=== PATIENT | female | born 1965 | race Caucasian/White ===

== ENCOUNTER 2024-01-02 10:31 | Emergency (ER) | payer OTHER, SELFPAY ==
[2024-01-02 10:52] VITALS: BP 159/106
--- NOTE | 2024-01-02 11:11 | EDRN ---
Pt states her symptoms started w/ pain on top of R shoulder last week. Pt states pain has been shooting up to mid base of skull. Pain is described as a 9/10. Pt has taken excedrin migraine, advil, tylenol and aleve, meloxicam w/ no change. Pain is
constant but increases to knife like when turns her head to the right.
[2024-01-02 11:14] VITALS: BMI 22.4
[2024-01-02 11:16] VITALS: BP 136/101
--- NOTE | 2024-01-02 11:19 | EDRN ---
Rebecca Castro PA in room w/ pt at this time.
[2024-01-02] MEDS: LIDOCAINE 4% PATCH 1 PATCH TOPICAL (11:39)
[2024-01-02] MEDS: VALIUM 5 MG PO (11:39)
--- NOTE | 2024-01-02 11:42 | ED.GENMED ---
History of Present Illness
General
Chief Complaint: Headache
Source: patient
Time Seen by Provider: 01/02/24 11:15
History of Present Illness
History of Present Illness:
58-year-old female with no significant past medical history presenting to the emergency department for evaluation of a right posterior head/neck pain that has been ongoing for 1 week described to be gradually worsening, constant, initially felt more
in the right trapezius area but now located along the posterior scalp and into the right lateral neck. Patient has been taking gomqth-fzm-prdte Motrin/ibuprofen and Tylenol but without any relief. She got a massage late last week which did not
help at all and also went to her chiropractor this morning which also did not provide her with any relief. At 9 AM this morning patient took 3 Tylenol and 2 Advil and states this did not help her. She denies any other symptoms other than the pain
including visual disturbances, focal weakness or numbness, fevers or infectious symptoms, traumatic injuries or anything that may have precipitated the pain. No history of similar. No other concerns presently
Past History
Past History
ED Past Medical History: None
ED Past Surgical History:
Social History
Tobacco: Non-smoker
Alcohol: Occasional
Drug: None
Personal:
Living: with family
Employment: Employed
Review of Systems
Review of Systems
All Other Systems: ROS reviewed and negative except as documented in HPI and ROS
Phy Exam
Physical Exam
Physical Exam:
GENERAL: Alert , appears uncomfortable
HEAD: NCAT
EYE: pupils equal and reactive, 3mm bilateral, EOMI
NECK: Supple, no significant adenopathy. FROM, no meningismus, mildly reproducible ttp right base of skull. no overlying rashes
ENT: o/p clr, mmm. TM clear bilateral
NEUROLOGICAL: Alert and oriented, no focal neuro deficits, MEDLEY x4, ambulates with steady gait
SKIN: Warm and dry, skin intact.
MUSCULOSKELETAL: well perfused.
PSYCH: Normal and appropriate interaction.
Scores
Heart Failure Risk
Heart Failure Risk Score: Not Applicable
Heart Score for Chest Pain Patients
STEMI patient?: Not applicable
Withdrawal Assessment of Alcohol
Withdrawal Assessment Completed?: Not applicable
Course
Orders/Labs/Results
Orders:
Orders
01/02/24 11:31
Dexamethasone Sod Phosphate [Decadron] 10 mg IV NOW STA
Diazepam [Valium] 5 mg PO NOW STA
Lidocaine [Lidocaine 4% Patch] 1 patch TOPICAL NOW STA
Apply Lidocaine patch(s) to:: right posterior neck/trap
01/02/24 11:39
CT Head & Neck Angio W/wo IV Urgent
Comment:
Reason For Exam: right sided posterior head/neck pain, HTN
01/02/24 11:46
Basic Metabolic Panel Urgent
Complete Blood Count/With Diff Urgent
Abnormal Lab Results
01/02/24
11:46
Glucose 106 H mg/dl
(70-99)
Calcium 10.3 H mg/dl
(8.4-10.2)
01/02/24 11:46
01/02/24 11:46
Vital Signs
Initial and Last Documented VS:
Initial Vital Signs
Temp Pulse Resp BP Pulse Ox
98.1 F 79 18 159/106 99
01/02/24 10:52 01/02/24 10:52 01/02/24 10:52 01/02/24 10:52 01/02/24 10:52
Last Documented Vital Signs
Temp Pulse Resp BP Pulse Ox
98.1 F 73 14 143/101 96
01/02/24 10:52 01/02/24 13:00 01/02/24 13:00 01/02/24 13:00 01/02/24 13:00
MDM/Problems Addressed
Differential Diagnosis Includes:
tension headache, migraine headache, occipital neuralgia, muscle spasm, vascular/dissection, space occupying mass
MDM/Problems Addressed:
58-year-old female presenting to the emergency department for atraumatic right sided posterior head/neck discomfort ongoing for 1 week. No relief with gtgi-msb-ugygglz medications, massage and chiropractic appointment. Appears uncomfortable on
exam here. In triage patient's elevated blood pressure noted, systolic was slightly improved but diastolic remained elevated during my exam. Will check labs and treat with muscle relaxer, topical agent and Decadron. Will obtain CT of the head as
well as CT angio of the head and neck to rule out any vascular pathology. Reassessment following
*Radiology
Radiology exam reviewed: radiology read reviewed
*Pulse Oximetry
Patient hypoxic: no
*Critical Care Note
Total Time (30-74mins, 75-104mins- exclusive of procedures): Not Applicable
Patient Management
Escalation/DeEscalation of care consider admission/obs:
Patient's CTA of the head and neck and plain CT of the head are negative for any acute pathologies. Patient noting she still has discomfort along the right side of the neck. I suspect a muscular etiology is most likely diagnosis. Will send
patient home with a Medrol Dosepak and continued muscle relaxation with Valium. She has a follow-up appointment scheduled with primary care provider tomorrow morning. Aware of return precautions to the ER but otherwise stable for discharge home.
ED Attending Note
-
Portions of this chart may have been created with voice recognition software.� Occasional wrong word or��sound alike� substitutions may have occurred due to the inherent limitations of voice recognition software.
Discharge Plan
Departure
Patient Disposition: Home (Routine Discharge)
Date of Disposition: 01/02/24
Time of Disposition: 14:09
Patient with high blood pressure during this ER visit?: Yes
Discharge Problem:
Cervicalgia
Instructions: Neck pain
Prescriptions:
New
methylprednisolone [Medrol (Bull)] 4 mg tablets,dose pack
4 mg PO DIRECTED Qty: 21 0RF
diazepam [Valium] 5 mg tablet
5 mg PO BID PRN (Reason: muscle spasm) Qty: 6 0RF
No Action
aspirin 325 MG tablet
325 mg PO BIDPRN PRN (Reason: headache)
ascorbic acid (vitamin C) [Vitamin C] 500 MG tablet
1,000 mg PO DAILY
ibfhtad-aqnhnmxyrukcb-rcswrzmi 1 TABLET tablet
1 tab PO BIDPRN PRN (Reason: headaches)
echinacea 125 MG capsule
125 mg PO DAILY
multivitamin with folic acid [Tab-A-Igor] 1 TABLET tablet
1 tab PO DAILY
omeprazole 20 MG capsule,delayed release(DR/EC)
20 mg PO DAILYPRN PRN (Reason: indigestion)
Referrals:
Elier Feliz, DO [Family Provider] -
Interventions
Interventions:
*Risk Screen - Suicide Last Done: 01/02/24 10:52
*General Assessment Last Done: 01/02/24 10:52
*Neglect/Abuse Screening Last Done: 01/02/24 10:52
ED- Fall Risk Assessment Last Done: 01/02/24 11:15
*ED COVID-19 Vaccine History Last Done: 01/02/24 11:14
ED- Neurological Assessment Last Done: 01/02/24 11:18
Discharge Date and Time
Print Language: SWEDISH
[2024-01-02] MEDS: DECADRON 10 MG IV (11:45)
[2024-01-02 11:59] LABS: % Basophils 0.8 % (0-2); % Eosinophils 1.4 % (0-6); % Immature Granulocytes 0.2 % (0-0.5); % Lymphocytes 22.8 % (20.5-51.1); % Monocytes 5.6 % (1.7-9.3); % Neutrophils 69.2 % (42.2-75.2); Absolute Basophils 0.1 10^3/uL (0-0.2); Absolute Eosinophils 0.1 10^3/uL (0-0.7); Absolute Lymphocytes 1.4 10^3/uL (1.2-3.4); Absolute Monocytes 0.4 10^3/uL (0.1-0.6); Absolute Neutrophils 4.3 10^3/uL (1.4-6.5); Hematocrit 44.7 % (37.0-47.0); Mean Corp Hgb Conc. 33.6 g/dL (33.0-37.0); Mean Corpuscular Hgb 28.5 pg (27.0-31.0); Mean Platelet Volume 9.7 fL (7.4-10.4); Nucleated Red Blood Cells % 0 %; Platelet Count 296 10^3/uL (130-400); Red Blood Cell Count 5.26 10^6/uL (4.20-5.40); White Blood Cell Count 6.2 10^3/uL (4.8-10.8)
[2024-01-02 12:00] VITALS: BP 146/99
[2024-01-02 12:21] LABS: Blood Urea Nitrogen 17 mg/dl (7-17); Calcium 10.3 mg/dl (8.4-10.2); Carbon Dioxide 29 mmol/L (22-30); Chloride 105 mmol/L (98-107); Estimated Creatinine Clearance 56 ml/min; Glucose 106 mg/dl (70-99); Potassium 4.4 mmol/L (3.5-5.1); Sodium 143 mmol/L (135-145); eGFR > 60.00
--- NOTE | 2024-01-02 12:21 | EDRN ---
Pt states her pain is unchanged at a 9/10.
--- NOTE | 2024-01-02 12:22 | EDRN ---
Rebecca SALDAÑA updated about pt's pain.
[2024-01-02 13:00] VITALS: BP 143/101
[2024-01-02 14:00] VITALS: BP 143/100
[2024-01-02 14:50] VITALS: BP 148/103
== END 2024-01-02 14:50 | disposition home or self-care (01) ==
LOC: EMR 10:31
PROVIDERS: Physician Assistant Medical; EMERGENCY PHYSICIAN Emergency Medicine; FAMILY PHYSICIAN Family Medicine
DX: M54.2 Cervicalgia (principal); I10 Essential (primary) hypertension
CPT/HCPCS: 99285; 96374; 70496; 70498; 80048; 85025; Q9967

== ENCOUNTER 2024-01-31 14:13 | Outpatient (RCR) | payer OTHER, SELFPAY | END 2024-01-31 23:59 | disposition home or self-care (01) | LOC: RPT 14:13 | PROVIDERS: ATTENDING PHYSICIAN Family Medicine | DX: M54.2 Cervicalgia (principal); Z73.6 Limitation of activities due to disability; M25.511 Pain in right shoulder; R20.0 Anesthesia of skin; R20.2 Paresthesia of skin | CPT/HCPCS: 97010; 97110; 97112; 97140; 97162 ==

== ENCOUNTER 2024-02-07 09:01 | Outpatient (RCR) | payer OTHER, SELFPAY | END 2024-02-07 23:59 | disposition home or self-care (01) | LOC: RPT 09:01 | PROVIDERS: ATTENDING PHYSICIAN Family Medicine | DX: M54.2 Cervicalgia (principal); Z73.6 Limitation of activities due to disability; M25.511 Pain in right shoulder; R20.0 Anesthesia of skin; R20.2 Paresthesia of skin | CPT/HCPCS: 97110; 97140 ==